=== PATIENT | female | born 1955 | race Caucasian/White ===

== ENCOUNTER → 2019-07-01 11:29 | Outpatient (BNVA) | payer MEDICARE, MEDICAID, SELFPAY | PROVIDERS: Family Provider Family Medicine; PCP Family Medicine; Visit Provider Anesthesiology | DX: M54.5 Low back pain (principal); M79.652 Pain in left thigh; M25.552 Pain in left hip; Z79.891 Long term (current) use of opiate analgesic | CPT/HCPCS: 99214 ==

== ENCOUNTER 2019-09-04 09:37 | Outpatient (CLI) | payer MEDICARE, MEDICAID, SELFPAY ==
[2019-09-04 09:54] VITALS: BP 167/78; PULSE 82; RESP 16; TEMP 36.9; O2SAT 98
[2019-09-04] MEDS: denosumab 60 mg SDV SUBCUT (10:00)
[2019-09-04 10:08] VITALS: BP 148/92; PULSE 80; RESP 16; TEMP 36.7; O2SAT 98
== END 2019-09-04 09:38 | disposition home or self-care (01) ==
LOC: RHEOACUTE 09:38
PROVIDERS: Family Provider Family Medicine; PCP Family Medicine; Visit Provider Internal Medicine Rheumatology
DX: M81.0 Age-related osteoporosis without current pathological fracture (principal)
CPT/HCPCS: 96372; J0897

== ENCOUNTER → 2019-10-21 10:19 | Outpatient (BNVA) | payer MEDICARE, MEDICAID, SELFPAY | PROVIDERS: Family Provider Family Medicine; PCP Family Medicine; Visit Provider Nurse Practitioner | DX: M54.5 Low back pain (principal); Z79.891 Long term (current) use of opiate analgesic | CPT/HCPCS: 99213 ==

== ENCOUNTER → 2019-10-27 09:56 | Outpatient (BNVA) | payer MEDICARE, MEDICAID, SELFPAY | PROVIDERS: Family Provider Family Medicine; PCP Family Medicine; Visit Provider Specialist | DX: G56.02 Carpal tunnel syndrome, left upper limb (principal) | CPT/HCPCS: 95908 ==

== ENCOUNTER → 2019-11-19 14:33 | Outpatient (BNVA) | payer MEDICARE, MEDICAID, SELFPAY | PROVIDERS: Family Provider Family Medicine; PCP Family Medicine; Referring Provider Family Medicine; Visit Provider Specialist | DX: G56.02 Carpal tunnel syndrome, left upper limb (principal) | CPT/HCPCS: 73110 ==

== ENCOUNTER 2019-11-19 16:04 | Outpatient (CLI) | payer MEDICARE, MEDICAID, SELFPAY | END 2019-11-19 16:05 | disposition home or self-care (01) | LOC: SPT 16:05 | PROVIDERS: Family Provider Family Medicine; PCP Family Medicine; Visit Provider Specialist | DX: Z46.89 Encounter for fitting and adjustment of other specified devices (principal); G56.02 Carpal tunnel syndrome, left upper limb | CPT/HCPCS: 73110; 97760; L3908 ==

== ENCOUNTER → 2019-12-31 09:53 | Outpatient (BNVA) | payer MEDICARE, MEDICAID, SELFPAY | PROVIDERS: Family Provider Family Medicine; PCP Family Medicine; Visit Provider Anesthesiology | DX: M54.42 Lumbago with sciatica, left side (principal); M25.552 Pain in left hip; Z79.891 Long term (current) use of opiate analgesic | CPT/HCPCS: 99213; 99214 ==

== ENCOUNTER → 2020-02-25 09:02 | Outpatient (BNVA) | payer MEDICARE, MEDICAID, SELFPAY | PROVIDERS: Family Provider Family Medicine; PCP Family Medicine; Visit Provider Anesthesiology | DX: M54.5 Low back pain (principal); Z79.891 Long term (current) use of opiate analgesic | CPT/HCPCS: 99213; 99214 ==